=== PATIENT | female | born 1970 | race Caucasian/White ===

== ENCOUNTER 2024-06-28 20:42 | Emergency (ER) | payer OTHER, SELFPAY ==
[2024-06-28 20:42] VITALS: BMI 35.9
[2024-06-28 20:43] VITALS: BP 131/87
--- NOTE | 2024-06-28 21:25 | ED.GENMED ---
History of Present Illness
General
Chief Complaint: Back Pain
Source: patient
Exam Limitations: none
Time Seen by Provider: 06/28/24 21:07
Nursing documentation reviewed up to this point in time: agreed with
History of Present Illness
History of Present Illness:
Patient to ED with complaint of pain to left buttock radiating to right groin and ant. thigh. Symptoms started last week. Pain contineus to worsen. Given rx for physical therapy but appt is not until next week. Taking naproxen without
improvement Now unable to find comfortable position. Pain is worse with movement. Denies fever/chills, recent illness. No prior hisstory of same.
Past History
Past History
ED Past Medical History: Other (Kidney stones)
ED Past Surgical History: Cholecystectomy and
Social History
Tobacco: Non-smoker
Alcohol: None
Living: with family
Employment: Employed
Family History
Family History: Other (Noncontributory)
Review of Systems
Review of Systems
Allergies reviewed?: Yes
All Other Systems: ROS reviewed and negative except as documented in HPI and ROS
Constitutional: Reports no symptoms
EENT: Reports no symptoms
Respiratory: Reports no symptoms
Cardiac: Reports no symptoms
ABD/GI: Reports no symptoms
: Reports no symptoms
Musculoskeletal: Reports back pain (left buttock radiating to left groin)
Skin: Reports no symptoms
Neurological: Reports no symptoms
Hematologic/Lymphatic: Reports no symptoms
Phy Exam
General Physical Exam
General Presentation: moderate distress
General age: appears stated age
General Skin: warm and dry
General Habitus: normal
General Mental: alert
Gastrointestinal Exam
Gastrointestinal Exam: non tender and soft
Musculoskeletal Exam
Musculoskeletal Exam: back pain and neuro vasc intact
Skin Exam
Skin Exam: normal color, warm/dry and no rash
Psychiatric Exam
Psychiatric Exam: normal mood/affect
Course
Orders/Labs/Results
Orders:
Orders
06/28/24 21:22
Dexamethasone Sod Phosphate [Decadron] 10 mg IV NOW STA
Ketorolac [Toradol] 30 mg IV NOW STA
Hip, Left 2-3 Views [CR Hip - LT w/wo Pel 2-3 Vw*] Urgent
Comment:
Reason For Exam: pain
Include a pelvis x-ray?: Yes
Lumbar Spine Complete, 4 View [CR Lumbar Spine Comp Min 4 Vw*] Urgent
Comment:
Reason For Exam: pain
06/28/24 21:32
Complete Blood Count/With Diff Urgent
Comprehensive Metabolic Panel Urgent
06/28/24 22:03
CT Abd/pel Without Iv Or Oral Urgent
Comment:
Reason For Exam: left flank pain, hx kidney stones
HYDROmorphone [Dilaudid] 0.5 mg IV NOW STA
Ondansetron Injectable [Zofran] 4 mg IV NOW STA
06/28/24 22:55
HYDROmorphone [Dilaudid] 0.5 mg IV NOW STA
06/28/24 23:22
Urinalysis Reflex To Culture Urgent
Comment: RECOLLECT
Abnormal Lab Results
06/28/24
21:32
MCHC 32.3 L g/dL
(33.0-37.0)
Absolute Neuts (auto) 7.8 H 10^3/uL
(1.4-6.5)
Absolute Monos (auto) 0.7 H 10^3/uL
(0.1-0.6)
Neutrophils % 75.4 H %
(42.2-75.2)
Lymphocytes % 16.7 L %
(20.5-51.1)
Glucose 115 H mg/dl
(70-99)
06/28/24 21:32
06/28/24 21:32
Vital Signs
Initial and Last Documented VS:
Initial Vital Signs
Temp Pulse Resp BP Pulse Ox
98.2 F 87 19 131/87 97
06/28/24 20:43 06/28/24 20:43 06/28/24 20:43 06/28/24 20:43 06/28/24 20:43
Last Documented Vital Signs
Temp Pulse Resp BP Pulse Ox
98.2 F 89 20 123/64 98
06/28/24 20:43 06/28/24 22:31 06/28/24 22:31 06/28/24 22:31 06/28/24 22:31
*Radiology
Radiology exam reviewed: radiology read reviewed
*Pulse Oximetry
Patient hypoxic: no
ED Attending Note
-
Portions of this chart may have been created with voice recognition software.� Occasional wrong word or��sound alike� substitutions may have occurred due to the inherent limitations of voice recognition software.
Discharge Plan
Departure
Patient with high blood pressure during this ER visit?: No
Condition: Good
Covid-19: Not Applicable
Discharge Problem:
Sciatic nerve pain
Instructions: Sciatica (DC)
Prescriptions:
New
prednisone 20 mg tablet
40 mg PO DAILY Qty: 8 0RF
oxycodone 5 mg capsule
5 mg PO Q4H PRN (Reason: Pain) Qty: 10 0RF
No Action
ondansetron 4 mg Tablet,Disintegrating
4 mg PO TIDPRN PRN (Reason: nausea/vomiting) Qty: 12 0RF
Referrals:
Matty De La Rosa, DO [Family Provider] - Follow up in 2-3 days
Activity Restrictions/Additional Instructions:
Follow up with your family doctor. Return to the emergency department for fever/chills, increasing pain, or for any further concerns.
Interventions
Interventions:
*Risk Screen - Suicide Last Done: 06/28/24 20:43
*General Assessment Last Done: 06/28/24 21:38
*Neglect/Abuse Screening Last Done: 06/28/24 20:43
*ED COVID-19 Vaccine History Last Done: 06/28/24 21:38
ED-Musculoskeletal Assessment Last Done: 06/28/24 21:42
Discharge Date and Time
Print Language: WELSH
[2024-06-28] MEDS: DECADRON 10 MG IV (21:33)
[2024-06-28] MEDS: TORADOL 30 MG IV (21:34)
[2024-06-28 21:45] LABS: % Basophils 0.4 % (0-2); % Eosinophils 0.5 % (0-6); % Immature Granulocytes 0.3 % (0-0.5); % Lymphocytes 16.7 % (20.5-51.1); % Monocytes 6.7 % (1.7-9.3); % Neutrophils 75.4 % (42.2-75.2); Absolute Eosinophils 0.1 10^3/uL (0-0.7); Absolute Lymphocytes 1.7 10^3/uL (1.2-3.4); Absolute Monocytes 0.7 10^3/uL (0.1-0.6); Absolute Neutrophils 7.8 10^3/uL (1.4-6.5); Hematocrit 40.6 % (37.0-47.0); Hemoglobin 13.1 g/dL (12.0-16.0); Mean Corp Hgb Conc. 32.3 g/dL (33.0-37.0); Mean Corpuscular Hgb 27.8 pg (27.0-31.0); Mean Corpuscular Volume 86.2 fL (81.0-99.0); Mean Platelet Volume 8.3 fL (7.4-10.4); Nucleated Red Blood Cells % 0 %; Platelet Count 300 10^3/uL (130-400); Red Blood Cell Count 4.71 10^6/uL (4.20-5.40); Red Cell Dist. Width 13.5 % (11.5-14.5); White Blood Cell Count 10.4 10^3/uL (4.8-10.8)
[2024-06-28 22:00] LABS: ALT (SGPT) 21 U/L (0-35); AST (SGOT) 26 U/L (14-36); Albumin 4.8 g/dl (3.5-5.0); Alkaline Phosphatase 63 U/L (38-126); Blood Urea Nitrogen 13 mg/dl (7-17); Calcium 9.5 mg/dl (8.4-10.2); Carbon Dioxide 25 mmol/L (22-30); Chloride 98 mmol/L (98-107); Glucose 115 mg/dl (70-99); Potassium 3.6 mmol/L (3.5-5.1); Sodium 138 mmol/L (135-145); Total Bilirubin 0.7 mg/dl (0.2-1.3); Total Protein 8.2 g/dl (6.3-8.2); eGFR > 60.00
[2024-06-28] MEDS: ZOFRAN 4 MG IV (22:18)
[2024-06-28] MEDS: DILAUDID 0.5 MG IV ×2 (22:19→23:11)
[2024-06-28 22:31] VITALS: BP 123/64
[2024-06-29 00:26] LABS: Urine Albumin Trace (Neg - Trace); Urine Bilirubin Negative (Negative); Urine Character Clear (Clear); Urine Color Yellow; Urine Glucose Negative (Negative); Urine Ketone 3+ (Negative); Urine Leukocyte Negative (Negative); Urine Nitrite Negative (Negative); Urine Occult Blood 3+ (Negative); Urine Specific Gravity 1.025 (<1.030); Urine Urobilinogen Negative (Neg - 1+)
[2024-06-29 01:13] VITALS: BP 122/61
[2024-06-29 01:20] LABS: Urine Amorphous Seen; Urine Mucus Many; Urine Squamous Cell >30 /LPF (Few)
[2024-06-29 01:21] LABS: Urine Red Blood Cell >100 /HPF (0-2)
[2024-06-29 01:22] LABS: Urine Bacteria Many (Negative)
== END 2024-06-29 01:15 | disposition home or self-care (01) ==
LOC: EMR 20:42
PROVIDERS: Nurse Practitioner; EMERGENCY PHYSICIAN Emergency Medicine; FAMILY PHYSICIAN Family Medicine
DX: M54.32 Sciatica, left side (principal); Z90.49 Acquired absence of other specified parts of digestive tract; Z87.442 Personal history of urinary calculi
CPT/HCPCS: 96374; 96375; 96376; 99284; 72110; 73502; 74176; 80053; 81003; 81015; 85025; 87086

== ENCOUNTER → 2024-07-24 11:14 | Outpatient (REF) | payer OTHER, SELFPAY | LOC: HWWDC 11:14 | PROVIDERS: ATTENDING PHYSICIAN Obstetrics & Gynecology; FAMILY PHYSICIAN Family Medicine | DX: Z12.31 Encounter for screening mammogram for malignant neoplasm of breast (principal) | CPT/HCPCS: 77063; 77067 ==

== ENCOUNTER → 2024-07-30 08:29 | Outpatient (REF) | payer OTHER, SELFPAY | LOC: WDC 08:29 | PROVIDERS: ATTENDING PHYSICIAN Obstetrics & Gynecology; FAMILY PHYSICIAN Family Medicine | DX: R92.8 Other abnormal and inconclusive findings on diagnostic imaging of breast (principal) | CPT/HCPCS: 76642 ==

== ENCOUNTER → 2024-10-01 10:31 | Outpatient (REF) | payer OTHER, SELFPAY | LOC: HWRAD 10:31 | PROVIDERS: ATTENDING PHYSICIAN Obstetrics & Gynecology; FAMILY PHYSICIAN Family Medicine | DX: R19.00 Intra-abdominal and pelvic swelling, mass and lump, unspecified site (principal) | CPT/HCPCS: 76830; 76856 ==

== ENCOUNTER → 2025-03-14 08:23 | Outpatient (REF) | payer OTHER, SELFPAY | LOC: HWRAD 08:23 | PROVIDERS: ATTENDING PHYSICIAN Obstetrics & Gynecology; FAMILY PHYSICIAN Family Medicine | DX: N83.291 Other ovarian cyst, right side (principal) | CPT/HCPCS: 76830; 76856 ==